=== PATIENT | male | born 1940 | race Caucasian/White ===

== ENCOUNTER 2016-06-03 07:55 | Day surgery (SDC) | payer MEDICARE, OTHER ==
[~2016-06-03 07:55] MED LIST: DIPHENHYDRAMINE HCL 50 MG/ML VIAL ONE; EPINEPHRINE INJ 1 MG/10 ML DISP.SYRIN ONE; FLUMAZENIL INJ 0.5 MG/5 ML VIAL IV ONE; GLUCAGON,HUMAN RECOMB 1 MG INJ ONE; NALOXONE HCL INJ/PF 0.4 MG/1 ML SDV ONE; ONDANSETRON HCL INJ/PF 4 MG/2 ML SDV ONE; PROMETHAZINE HCL INJ 25 MG/1 ML VIAL ONE
[2016-06-03] MEDS: MIDAZOLAM 2 MG/2 ML INJ ONE ×3 (08:47→09:15)
[2016-06-03] MEDS: FENTANYL CITRATE INJ/PF 100 MCG/2 ML AMPUL ONE ×2 (08:49→09:04)
--- NOTE | 2016-06-03 09:46 | Operative Report ---
Operative Report DATE OF SURGERY: 06/03/16 Operative Report: The risks, benefits and alternatives of the procedure including risks of bleeding, perforation requiring surgery are explained to the patient detail and informed consent is obtained. Patient is placed in a left lateral decubital position. He is taken to the endoscopy suite. Timeout is called. Conscious sedation medications administered. A rectal examination was done which did not reveal any masses, tears or fissures. A 160 Olympus endoscope was inserted into the patient's rectum. Keeping the lumen in site at all times the scope was then gradually advanced all the way to the cecum. The cecum was identified by the usual anatomical landmarks including the ileocecal valve as well as the appendiceal office. Photodocumentation is obtained. Prep is reasonably good although there are areas of solid fecal material that still present. From the cecum, the scope was then sequentially pulled back out via the rest segments of the colon including the ascending colon, hepatic flexure, transverse colon, splenic flexure, descending colon and finally into the rectosigmoid colon. Retroflexion maneuvers performed. Following this the patient's stretcher was turned around and EGD performed.The risks benefits and alternatives of the procedure explained to the patient in detail and informed consent is obtained that GIF Olympus video scope was inserted into the patient's mouth and hypopharynx the esophagus is identified intubated and insufflated the scope was then advanced through the esophagus stomach and duodenum retroflexion maneuver is done the esophagus stomach and first and second portions of the duodenum examined PREOPERATIVE DIAGNOSIS: Personal history of polyps. Gastroesophageal reflux disease rule out Menjivar's esophagus POSTOPERATIVE DIAGNOSIS: Colon polyp in the cecum. This is removed via snare polypectomy and retrieved. Redundant colon. Internal hemorrhoids. Gastric polyps noted biopsy taken rule out carcinoid. Gastritis OPERATION: Colonoscopy with snare polypectomy. EGD with biopsy SURGEON: JEAN MARIE GARCIA ANESTHESIA: Moderate Sedation - 6 mg Versed, 75 g of fentanyl. TISSUE REMOVED OR ALTERED: Specimen retrieved from colon, gastric specimens obtained COMPLICATIONS: None. ESTIMATED BLOOD LOSS: none. INTRAOPERATIVE FINDINGS: No other masses, AVMs, diverticulosis noted in the colon. Some mild internal hemorrhoids are noted. Did not see any Menjivar's esophagus. First and second portions of the duodenum normal PROCEDURE: Patient tolerated the procedure well. No immediate postprocedure complications are noted. Patient is discharged in good condition. Discharge date 06/03/2016. Discharge diet: Regular. Discharge activity: Regular. Five-year surveillance for the next colonoscopy Patient does have a 2-3 week follow-up to discuss findings. Patient instructed to go to the emergency room I'll call the office should there be any further problems or questions.
[2016-06-03 10:26] VITALS: BP 130/67
== END 2016-06-03 10:30 | disposition home or self-care (01) ==
LOC: END 07:55
PROVIDERS: ATTEND Internal Medicine Gastroenterology
PROC: 0DB68ZX Excision of Stomach, Via Natural or Artificial Opening Endoscopic, Diagnostic (ICD-10-PCS; principal; 2016-06-03 08:30)
PROC: 0DBH8ZX Excision of Cecum, Via Natural or Artificial Opening Endoscopic, Diagnostic (ICD-10-PCS; 2016-06-03 08:30)
DX: D12.0 Benign neoplasm of cecum (principal); K64.8 Other hemorrhoids; K29.50 Unspecified chronic gastritis without bleeding; K31.7 Polyp of stomach and duodenum; K21.9 Gastro-esophageal reflux disease without esophagitis; Z79.82 Long term (current) use of aspirin; I25.10 Atherosclerotic heart disease of native coronary artery without angina pectoris; E78.5 Hyperlipidemia, unspecified; I10 Essential (primary) hypertension; M51.36 Other intervertebral disc degeneration, lumbar region; Z79.899 Other long term (current) drug therapy; Z95.1 Presence of aortocoronary bypass graft; Z98.61 Coronary angioplasty status
CPT/HCPCS: 43239; 45385; 88342 ×2; 88305 ×2; J2250; J3010; J0171; J1200; J1610; J2310; J2405; J2550; J3490

== ENCOUNTER 2017-05-29 09:13 | Emergency (ER) | payer MEDICARE, OTHER ==
[2017-05-29 09:37] VITALS: BP 159/78
--- NOTE | 2017-05-29 09:48 | RADIOLOGY REPORT (SQ) ---
EXAM DESCRIPTION: CT CERVICAL SPINE WITHOUT COMPLETED DATE/TIME: 05/29/2017 9:31 am REASON FOR STUDY: fall , loc COMPARISON: None. TECHNIQUE: Axial images acquired through the cervical spine without intravenous contrast. Images re viewed with lung, soft tissue and bone windows. Reconstructed coronal and sagittal MPR images review ed. Images stored on PACS. All CT scanners at this facility use dose modulation, iterative reconstruction, and/or weight based d osing when appropriate to reduce radiation dose to as low as reasonably achievable (ALARA). [facility]: Dose Right [facility]: CareDose [facility]: Dose Right [facility]: Teradose 4D [facility]: Smart E-Sign RADIATION DOSE: CT Rad equipment meets quality standard of care and radiation dose reduction techniq ues were employed. CTDIvol: 18.8 mGy. DLP: 395 mGy-cm. mGy. LIMITATIONS: None. FINDINGS: ALIGNMENT: Anatomic. MINERALIZATION: Normal. VERTEBRAL BODIES: No fractures or dislocation. DISCS: Multilevel disc space narrowing with osteophytes. FACETS, LATERAL MASSES, POSTERIOR ELEMENTS: Facet arthropathy. No fractures. No dislocation. No ac [place] findings. HARDWARE: None in the spine. VISUALIZED RIBS: No fractures. LUNG APICES AND SOFT TISSUES: No significant or acute findings. OTHER: No other significant finding. IMPRESSION: CHRONIC DEGENERATIVE CHANGES. NO ACUTE FINDINGS. TECHNICAL DOCUMENTATION: JOB ID: [id number] Quality ID # [id number]: Final reports with documentation of one or more dose reduction techniques (e.g., Au tomated exposure control, adjustment of the mA and/or kV according to patient size, use of iterative reconstruction technique) 2010 [employer]- All Rights Reserved
--- NOTE | 2017-05-29 09:48 | RADIOLOGY REPORT (SQ) ---
EXAM DESCRIPTION: CT HEAD WITHOUT COMPLETED DATE/TIME: 05/29/2017 9:30 am REASON FOR STUDY: fall , loc COMPARISON: None. TECHNIQUE: Axial images acquired through the brain without intravenous contrast. Images reviewed wi th bone, brain and subdural windows. Images stored on PACS. All CT scanners at this facility use dose modulation, iterative reconstruction, and/or weight based d osing when appropriate to reduce radiation dose to as low as reasonably achievable (ALARA). [facility]: Dose Right [facility]: CareDose [facility]: Dose Right [facility]: Teradose 4D [facility]: [employer] RADIATION DOSE: CT Rad equipment meets quality standard of care and radiation dose reduction techniq ues were employed. CTDIvol: 64.6 mGy. DLP: 1163 mGy-cm. mGy. LIMITATIONS: None. FINDINGS: VENTRICLES: Prominent. CEREBRUM: No masses. No hemorrhage. No midline shift. Areas of low density in the white matter mos t likely due to chronic micro-vascular ischemic change. No evidence for acute infarction. CEREBELLUM: No masses. No hemorrhage. No alteration of density. No evidence for acute infarction. EXTRAAXIAL SPACES: Mild age-related involutional change. No fluid collections. No masses. ORBITS AND GLOBE: No intra- or extraconal masses. Normal contour of globe without masses. CALVARIUM: No fracture. PARANASAL SINUSES: No fluid or mucosal thickening. SOFT TISSUES: No mass or hematoma. OTHER: No other significant finding. IMPRESSION: MILD CHRONIC CHANGES OF ATROPHY AND MICROVASCULAR ISCHEMIA. NO ACUTE PROCESS. EVIDENCE OF ACUTE STROKE: NO. TECHNICAL DOCUMENTATION: JOB ID: [id number] Quality ID # [id number]: Final reports with documentation of one or more dose reduction techniques (e.g., Au tomated exposure control, adjustment of the mA and/or kV according to patient size, use of iterative reconstruction technique) 2010 [employer]- All Rights Reserved
[2017-05-29] MEDS ORDERED: NAPROXEN 250 MG TABLET PO ONE (10:36)
--- NOTE | 2017-05-29 10:42 | ER Document Report ---
ED General - General Chief Complaint: Fall Stated Complaint: FALL/HEAD PAIN Time Seen by Provider: 05/29/17 09:20 Mode of Arrival: Ambulatory Information source: Patient Notes: 76-year-old male history of quadruple bypass presents after falling and striking his head. It is noted to be icy outside and patient was walking his dog, he is unsure if he slept R syncopized. Patient denies any chest pain shortness breath difficulty breathing or any other complaints except for a headache. It is noted that EMS did bring the patient was found on the floor TRAVEL OUTSIDE OF THE [place] IN LAST 30 DAYS: No - HPI Onset: Just prior to arrival Onset/Duration: Sudden Quality of pain: Achy Severity: Mild Pain Level: 1 Associated symptoms: Headache Exacerbated by: Denies Relieved by: Denies Similar symptoms previously: No Recently seen / treated by doctor: No - Related Data Allergies/Adverse Reactions: No Known Allergies Allergy (Verified 06/03/16 08:15) Past Medical History - Social History Smoking Status: Never Smoker Cigarette use (# per day): No Chew tobacco use (# tins/day): No Smoking Education Provided: No Frequency of alcohol use: None Drug Abuse: None Family History: Reviewed & Not Pertinent Patient has suicidal ideation: No Patient has homicidal ideation: No - Past Medical History Cardiac Medical History: Reports: Hx Coronary Artery Disease, Hx Heart Attack, Hx Hypercholesterolemia, Hx Hypertension Pulmonary Medical History: Denies: Hx Asthma, Hx Bronchitis, Hx COPD, Hx Pneumonia Neurological Medical History: Denies: Hx Cerebrovascular Accident, Hx Seizures Renal/ Medical History: Denies: Hx Peritoneal Dialysis Musculoskeltal Medical History: Reports Hx Arthritis - HANDS - Immunizations Hx Diphtheria, Pertussis, Tetanus Vaccination: Yes Hx Pneumococcal Vaccination: 02/21/13 Review of Systems - Review of Systems Notes: REVIEW OF SYSTEMS: CONSTITUTIONAL : Denies fever, chills, or sweats. Denies recent illness. EENT: Denies eye, ear, throat, or mouth pain or symptoms. Denies nasal or sinus congestion or discharge. Denies throat, tongue, or mouth swelling or difficulty swallowing. CARDIOVASCULAR: Denies chest pain. Denies palpitations or racing or irregular heart beat. Denies ankle edema. RESPIRATORY: Denies cough, cold, or chest congestion. Denies shortness of breath, difficulty breathing, or wheezing. GASTROINTESTINAL: Denies abdominal pain or distention. Denies nausea, vomiting , or diarrhea. Denies blood in vomitus, stools, or per rectum. Denies black, tarry stools. Denies constipation. GENITOURINARY: Denies difficulty urinating, painful urination, burning, frequency, blood in urine, or discharge. MUSCULOSKELETAL: Denies back or neck pain or stiffness. Denies joint pain or swelling. SKIN: Denies rash, lesions or sores. HEMATOLOGIC : Denies easy bruising or bleeding. LYMPHATIC: Denies swollen, enlarged glands. NEUROLOGICAL: Admits headache PSYCHIATRIC: Denies anxiety or stress. Denies depression, suicidal ideation, or homicidal ideation. ALL OTHER SYSTEMS REVIEWED AND NEGATIVE. Dictation was performed using [employer] voice recognition software PHYSICAL EXAMINATION: GENERAL: Well-appearing, well-nourished and in no acute distress. HEAD: Atraumatic, normocephalic. EYES: Pupils equal round and reactive to light, extraocular movements intact, sclera anicteric, conjunctiva are normal. ENT: Nares patent, oropharynx clear without exudates. Moist mucous membranes. NECK: Normal range of motion, supple without lymphadenopathy LUNGS: Breath sounds clear to auscultation bilaterally and equal. No wheezes rales or rhonchi. HEART: Regular rate and rhythm without murmurs ABDOMEN: Soft, nontender, nondistended abdomen. No guarding, no rebound. No masses appreciated. Musculoskeletal: Normal range of motion, no pitting or edema. No cyanosis. NEUROLOGICAL: Cranial nerves grossly intact. Normal speech, normal gait. Normal sensory, motor exams PSYCH: Normal mood, normal affect. SKIN: Warm, Dry, normal turgor, no rashes or lesions noted. Physical Exam - Vital signs Vitals: Temp Pulse Resp BP Pulse Ox 97.9 F 54 L 16 159/78 H 97 05/29/17 09:22 05/29/17 09:22 05/29/17 09:22 05/29/17 09:22 05/29/17 09:22 Course - Re-evaluation Re-evalutation: 05/29/17 10:45 CT head and neck were negative c-collar was removed patient never had any cervical tenderness but given that I am unsure what exactly happened I did want to clear his neck as well. EKG was performed a left bundle branch block is noted, patient has no chest pain symptoms however I will do a set of troponins nonetheless 05/29/17 16:01 Cardiac enzymes are negative patient's lab work is benign, he feels well wishes to be discharged, I will discharge him with understand that this is not a complete cardiac evaluation even though I have very low suspicion for any cardiac event that he has no chest pain no other symptoms. I believe this was a mechanical fall with a concussion After performing a Medical Screening Examination, I estimate there is LOW risk for ACUTE GLAUCOMA, TEMPORAL ARTERITIS, MENINGITIS, INCRANIAL HEMORRHAGE, or ISCHEMIC STROKE thus I consider the discharge disposition reasonable. I have reevaluated this patient multiple times and no significant life threatening changes are noted. The patient and I have discussed the diagnosis and risks, and we agree with discharging home with close follow-up with the understanding that symptoms and presentations can change. We also discussed returning to the Emergency Department immediately if new or worsening symptoms occur. We have discussed the symptoms which are most concerning (e.g., changing or worsening symptoms, new numbness or weakness, vomiting, fever) that necessitate immediate return. - Vital Signs Vital signs: Temp Pulse Resp BP Pulse Ox 97.9 F 54 L 16 159/78 H 97 05/29/17 09:22 05/29/17 09:22 05/29/17 09:22 05/29/17 09:22 05/29/17 09:22 - Laboratory Result Diagrams: 05/29/17 11:14 05/29/17 11:14 Laboratory results interpreted by me: 05/29/17 11:14 Glucose 119 H - Diagnostic Test Radiology reviewed: Image reviewed, Reports reviewed - EKG Interpretation by In EKG shows normal: Sinus rhythm, [place], Intervals, QRS Complexes [place]/QRS: LBBB Discharge - Discharge Clinical Impression: Fall Qualifiers: Encounter type: initial encounter Qualified Code(s): W19.XXXA - Unspecified fall, initial encounter Concussion Qualifiers: Encounter type: initial encounter Loss of consciousness presence/duration: with LOC of 30 min or less Qualified Code(s): S06.0X1A - Concussion with loss of consciousness of 30 minutes or less, initial encounter Condition: Stable Disposition: HOME, SELF-CARE Instructions: Concussion ([facility]) Referrals: DEJAH RAMOS MD [Primary Care Provider] - Follow up tomorrow
[2017-05-29 11:27] LABS: ABSOLUTE BASOPHILS # (AUTO) 0.1 10^3/uL (0.0-0.2); ABSOLUTE EOSINOPHILS # (AUTO) 0.1 10^3/uL (0.0-0.6); ABSOLUTE LYMPHOCYTES (AUTO) 1.8 10^3/uL (0.5-4.7); ABSOLUTE MONOCYTES (AUTO) 0.6 10^3/uL (0.1-1.4); ABSOLUTE NEUT (AUTO) 6.6 10^3/uL (1.7-8.2); BASOPHILS % (AUTO) 0.7 % (0-2); EOSINOPHILS % (AUTO) 0.9 % (0-6); HEMATOCRIT 44.4 % (37.9-51.0); HEMOGLOBIN 15.4 g/dL (13.5-17.0); LYMPHOCYTES % (AUTO) 19.5 % (13-45); MEAN CORPUSCULAR HEMOGLOBIN 31.2 pg (27.0-33.4); MEAN CORPUSCULAR HGB CONC 34.6 g/dL (32.0-36.0); MEAN CORPUSCULAR VOLUME 90 fl (80-97); MONOCYTES % (AUTO) 6.4 % (3-13); PLATELET COUNT 189 10^3/uL (150-450); RED BLOOD COUNT 4.92 10^6/uL (4.35-5.55); SEGMENTED NEUTROPHILS % (AUTO) 72.5 % (42-78); TOTAL CELLS COUNTED % (AUTO) 100 %; WHITE BLOOD COUNT 9.1 10^3/uL (4.0-10.5)
--- NOTE | 2017-05-29 11:38 | EKG REPORT ---
SEVERITY:- ABNORMAL ECG - SINUS RHYTHM LEFT BUNDLE BRANCH BLOCK : Confirmed by: Elliot Carreon 29-May-2017 11:37:31
[2017-05-29 11:41] LABS: ALANINE AMINOTRANSFERASE 25 U/L (21-72); ALBUMIN 4.4 g/dL (3.5-5.0); ALKALINE PHOSPHATASE 69 U/L (38-126); ANION GAP 9 (5-19); ASPARTATE AMINO TRANSFERASE 23 U/L (17-59); BILIRUBIN,DIRECT 0.2 mg/dL (0.0-0.4); BILIRUBIN,TOTAL 0.6 mg/dL (0.2-1.3); BLOOD UREA NITROGEN 19 mg/dL (7-20); CALCIUM 9.7 mg/dL (8.4-10.2); CARBON DIOXIDE 29 mmol/L (22-30); CHLORIDE 104 mmol/L (98-107); CREATINE KINASE 92 U/L (55-170); GLUCOSE 119 mg/dL (75-110); POTASSIUM 4.4 mmol/L (3.6-5.0); SODIUM 142.1 mmol/L (137-145); TOTAL PROTEIN 7.3 g/dL (6.3-8.2)
[2017-05-29 11:53] LABS: CREATINE KINASE MB 1.87 ng/mL (<4.55)
[2017-05-29 11:55] LABS: TROPONIN I < 0.012 ng/mL
== END 2017-05-29 13:16 | disposition home or self-care (01) ==
LOC: ER 09:13
DX: S06.0X1A Concussion with loss of consciousness of 30 minutes or less, initial encounter (principal); R51 Headache; W19.XXXA Unspecified fall, initial encounter; Y93.K1 Activity, walking an animal; I25.10 Atherosclerotic heart disease of native coronary artery without angina pectoris; I10 Essential (primary) hypertension; I25.2 Old myocardial infarction; I44.7 Left bundle-branch block, unspecified
CPT/HCPCS: 93005; 99284; 36415; 82553; 82550; 85025; 80053; 84484; 70450; 72125; 93010; L0120; A9270

== ENCOUNTER → 2017-06-05 | Outpatient (CLI) | payer MEDICARE, OTHER ==
--- NOTE | 2017-06-05 15:21 | RADIOLOGY REPORT (SQ) ---
EXAM DESCRIPTION: CT HEAD WITHOUT COMPLETED DATE/TIME: 06/05/2017 2:59 pm REASON FOR STUDY: CONCUSSION WITH LOSS OF CONSCIOUSNESS, SUBSEQUENT ENCOUNTER S06.0X9D CONCUSSION W LOSS OF CONSCIOUSNESS OF UNSP DURATION COMPARISON: 05/29/2017. TECHNIQUE: Axial images acquired through the brain without intravenous contrast. Images reviewed wi th bone, brain and subdural windows. Images stored on PACS. All CT scanners at this facility use dose modulation, iterative reconstruction, and/or weight based d osing when appropriate to reduce radiation dose to as low as reasonably achievable (ALARA). [facility]: Dose Right [facility]: CareDose [facility]: Dose Right [facility]: Teradose 4D [facility]: [employer] RADIATION DOSE: CT Rad equipment meets quality standard of care and radiation dose reduction techniq ues were employed. CTDIvol: 64.6 mGy. DLP: 1163 mGy-cm. mGy. LIMITATIONS: None. FINDINGS: VENTRICLES: Prominent. CEREBRUM: No masses. No hemorrhage. No midline shift. Areas of low density in the white matter mos t likely due to chronic micro-vascular ischemic change. No evidence for acute infarction. CEREBELLUM: No masses. No hemorrhage. No alteration of density. No evidence for acute infarction. EXTRAAXIAL SPACES: Mild age-related involutional change. No fluid collections. No masses. ORBITS AND GLOBE: No intra- or extraconal masses. Normal contour of globe without masses. CALVARIUM: No fracture. PARANASAL SINUSES: No fluid or mucosal thickening. SOFT TISSUES: No mass or hematoma. OTHER: There is an expansile mass in the sella turcica. IMPRESSION: MILD CHRONIC CHANGES OF ATROPHY AND MICROVASCULAR ISCHEMIA. NO ACUTE FINDINGS. 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 RECOMMEND FOLLOW-UP WITH MRI O F THE BRAIN WITH ATTENTION TO THE PITUITARY. EVIDENCE OF ACUTE STROKE: NO. TECHNICAL DOCUMENTATION: JOB ID: [id number] Quality ID # [id number]: Final reports with documentation of one or more dose reduction techniques (e.g., Au tomated exposure control, adjustment of the mA and/or kV according to patient size, use of iterative reconstruction technique) 2010 [employer]- All Rights Reserved
== END ==
LOC: RAD 14:46
PROVIDERS: ATTEND Family Medicine
DX: S06.0X9D Concussion with loss of consciousness of unspecified duration, subsequent encounter (principal); X58.XXXD Exposure to other specified factors, subsequent encounter
CPT/HCPCS: 70450

== ENCOUNTER → 2017-12-13 | Outpatient (CLI) | payer MEDICARE, OTHER ==
[2017-12-13 14:22] LABS: ABSOLUTE EOSINOPHILS # (AUTO) 0.1 10^3/uL (0.0-0.6); ABSOLUTE LYMPHOCYTES (AUTO) 1.9 10^3/uL (0.5-4.7); ABSOLUTE MONOCYTES (AUTO) 0.4 10^3/uL (0.1-1.4); ABSOLUTE NEUT (AUTO) 3.3 10^3/uL (1.7-8.2); BASOPHILS % (AUTO) 0.7 % (0-2); EOSINOPHILS % (AUTO) 2.1 % (0-6); HEMATOCRIT 41.5 % (37.9-51.0); HEMOGLOBIN 14.6 g/dL (13.5-17.0); MEAN CORPUSCULAR HEMOGLOBIN 30.6 pg (27.0-33.4); MEAN CORPUSCULAR HGB CONC 35.2 g/dL (32.0-36.0); MEAN CORPUSCULAR VOLUME 87 fl (80-97); MONOCYTES % (AUTO) 7.2 % (3-13); PLATELET COUNT 165 10^3/uL (150-450); RED BLOOD COUNT 4.77 10^6/uL (4.35-5.55); RED CELL DISTRIBUTION WIDTH 13.9 % (11.5-14.0); TOTAL CELLS COUNTED % (AUTO) 100 %; WHITE BLOOD COUNT 5.7 10^3/uL (4.0-10.5)
[2017-12-13 14:44] LABS: ANION GAP 11 (5-19); BLOOD UREA NITROGEN 20 mg/dL (7-20); CALCIUM 9.4 mg/dL (8.4-10.2); CARBON DIOXIDE 27 mmol/L (22-30); CHLORIDE 105 mmol/L (98-107); GLUCOSE 141 mg/dL (75-110); POTASSIUM 4.4 mmol/L (3.6-5.0); SODIUM 142.9 mmol/L (137-145)
[2017-12-13 14:51] LABS: INTERNATIONAL RATION (INR) 0.97; PROTHROMBIN TIME 13.3 SEC (11.4-15.4)
== END ==
LOC: LAB 12:23
PROVIDERS: ATTEND Hospitalist
DX: R07.9 Chest pain, unspecified (principal); I25.10 Atherosclerotic heart disease of native coronary artery without angina pectoris
CPT/HCPCS: 36415; 80048; 84484; 85025; 85610

== ENCOUNTER 2019-04-27 13:24 | Observation (INO) | payer MEDICARE, OTHER ==
--- NOTE | 2019-04-27 14:01 | ER Document Report ---
ED Medical Screen (RME) - General Chief Complaint: Shortness Of Breath Stated Complaint: SHORTNESS OF BREATH/NAUSEA Time Seen by Provider: 04/27/19 13:45 Primary Care Provider: DEJAH RAMOS MD [Primary Care Provider] - Follow up as needed Mode of Arrival: Ambulatory TRAVEL OUTSIDE OF THE [place] IN LAST 30 DAYS: No - HPI Notes: 04/27/19 13:58 78-year-old male presents with for sudden onset shortness of breath that started today patient had a valve replacement done in [place] on Wednesday in which they went through his femoral artery. Patient states that he has to "catch his breath" throughout the day. Denies any fevers or chills. Patient does report some nausea. Denies any history of heart failure. Patient is on baby aspirin. Worse with time, nothing makes better. Denies any pedal edema. I have greeted and performed a rapid initial assessment of this patient. A comprehensive ED assessment and evaluation of the patient, analysis of test results and completion of the medical decision making process will be conducted by additional ED providers. PHYSICAL EXAMINATION: GENERAL: Well-appearing, well-nourished and in no acute distress. HEAD: Atraumatic, normocephalic. EYES: Pupils equal round extraocular movements intact, conjunctiva are normal. ENT: Nares patent NECK: Normal range of motion LUNGS: No respiratory distress, CTA Musculoskeletal: Normal range of motion NEUROLOGICAL: Normal speech, normal gait. PSYCH: Normal mood, normal affect. SKIN: Warm, Dry, normal turgor, no rashes or lesions noted. - Related Data Allergies/Adverse Reactions: No Known Allergies Allergy (Verified 04/27/19 13:46) Past Medical History - Social History Chew tobacco use (# tins/day): No Frequency of alcohol use: None Drug Abuse: None - Past Medical History Cardiac Medical History: Reports: Hx Coronary Artery Disease, Hx Heart Attack, Hx Hypercholesterolemia, Hx Hypertension Pulmonary Medical History: Denies: Hx Asthma, Hx Bronchitis, Hx COPD, Hx Pneumonia Neurological Medical History: Denies: Hx Cerebrovascular Accident, Hx Seizures Renal/ Medical History: Denies: Hx Peritoneal Dialysis Musculoskeltal Medical History: Reports Hx Arthritis - HANDS - Immunizations Hx Diphtheria, Pertussis, Tetanus Vaccination: Yes Physical Exam - Vital signs Vitals: Temp Pulse Resp BP Pulse Ox 98 F 67 16 146/55 H 97 12/05/19 13:41 04/27/19 13:41 04/27/19 13:41 04/27/19 13:41 04/27/19 13:41 Course - Vital Signs Vital signs: Temp Pulse Resp BP Pulse Ox 98 F 67 16 146/55 H 97 04/27/19 13:46 04/27/19 13:46 04/27/19 13:46 04/27/19 13:46 04/27/19 13:46 Doctor's Discharge - Discharge Referrals: DEJAH RAMOS MD [Primary Care Provider] - Follow up as needed
--- NOTE | 2019-04-27 15:03 | RADIOLOGY REPORT (SQ) ---
EXAM DESCRIPTION: CHEST 2 VIEWS COMPLETED DATE/TIME: 04/27/2019 2:33 pm REASON FOR STUDY: sob s/p valve replacement COMPARISON: 08/22/2010 EXAM PARAMETERS: NUMBER OF VIEWS: two views TECHNIQUE: Digital Frontal and Lateral radiographic views of the chest acquired. RADIATION DOSE: NA LIMITATIONS: none FINDINGS: LUNGS AND PLEURA: No opacities, masses or pneumothorax. No pleural effusion. MEDIASTINUM AND HILAR STRUCTURES: No masses or contour abnormalities. HEART AND VASCULAR STRUCTURES: Heart normal size. No evidence for failure. BONES: No acute findings. HARDWARE: Sternotomy wires. Heart valve. Graft markers. OTHER: No other significant finding. IMPRESSION: NO ACUTE RADIOGRAPHIC FINDING IN THE CHEST. TECHNICAL DOCUMENTATION: JOB ID: [id number] [employer]- All Rights Reserved Reading location - IP/workstation name: [email or web address]
[2019-04-27 15:10] LABS: ABSOLUTE EOSINOPHILS # (AUTO) 0.1 10^3/uL (0.0-0.6); ABSOLUTE LYMPHOCYTES (AUTO) 1.6 10^3/uL (0.5-4.7); ABSOLUTE MONOCYTES (AUTO) 0.7 10^3/uL (0.1-1.4); ABSOLUTE NEUT (AUTO) 5.1 10^3/uL (1.7-8.2); BASOPHILS % (AUTO) 0.4 % (0-2); HEMATOCRIT 40.3 % (37.9-51.0); HEMOGLOBIN 14.2 g/dL (13.5-17.0); LYMPHOCYTES % (AUTO) 21.2 % (13-45); MEAN CORPUSCULAR HEMOGLOBIN 32.2 pg (27.0-33.4); MEAN CORPUSCULAR HGB CONC 35.2 g/dL (32.0-36.0); MEAN CORPUSCULAR VOLUME 91 fl (80-97); MONOCYTES % (AUTO) 9.1 % (3-13); PLATELET COUNT 125 10^3/uL (150-450); RED BLOOD COUNT 4.42 10^6/uL (4.35-5.55); RED CELL DISTRIBUTION WIDTH 14.1 % (11.5-14.0); SEGMENTED NEUTROPHILS % (AUTO) 68.3 % (42-78); TOTAL CELLS COUNTED % (AUTO) 100 %; WHITE BLOOD COUNT 7.5 10^3/uL (4.0-10.5)
[2019-04-27 15:26] LABS: INTERNATIONAL RATION (INR) 1.01; PROTHROMBIN TIME 13.3 SEC (11.4-15.4)
[2019-04-27 15:27] LABS: PARTIAL THROMBOPLASTIN TIME 27.4 SEC (23.5-35.8)
[2019-04-27 15:32] LABS: ALKALINE PHOSPHATASE 72 U/L (38-126); ANION GAP 7 (5-19); ASPARTATE AMINO TRANSFERASE 34 U/L (17-59); BILIRUBIN,DIRECT 0.1 mg/dL (0.0-0.4); BILIRUBIN,TOTAL 1.2 mg/dL (0.2-1.3); BLOOD UREA NITROGEN 28 mg/dL (7-20); CALCIUM 9.3 mg/dL (8.4-10.2); CARBON DIOXIDE 29 mmol/L (22-30); CHLORIDE 104 mmol/L (98-107); GLUCOSE 108 mg/dL (75-110); POTASSIUM 4.2 mmol/L (3.6-5.0); TOTAL PROTEIN 7.3 g/dL (6.3-8.2)
[2019-04-27 15:47] LABS: TROPONIN I 0.108 ng/mL
--- NOTE | 2019-04-27 18:49 | RADIOLOGY REPORT (SQ) ---
EXAM DESCRIPTION: CTA CHEST COMPLETED DATE/TIME: 04/27/2019 6:30 pm REASON FOR STUDY: recent TAVR, r/o PE COMPARISON: None. TECHNIQUE: CT scan of the chest performed using helical scanning technique with dynamic intravenous contrast injection. Images reviewed with lung, soft tissue and bone windows. Reconstructed coronal and sagittal MPR images reviewed. Additional 3 dimensional post-processing performed to develop Maximal Intensity Projection images (OR P). All images stored on PACS. All CT scanners at this facility use dose modulation, iterative reconstruction, and/or weight based d osing when appropriate to reduce radiation dose to as low as reasonably achievable (ALARA). [facility]: Dose Right [facility]: CareDose [facility]: Dose Right [facility]: Teradose 4D [facility]: [employer] CONTRAST TYPE AND DOSE: contrast/concentration: Isovue 350.00 mg/ml; Total Contrast Delivered: 56.0 ml; Total Saline Delivered: 80.0 ml Contrast bolus adequate for pulmonary arteries and aorta. RENAL FUNCTION: BUN 28 creatinine 1.28 RADIATION DOSE: CT Rad equipment meets quality standard of care and radiation dose reduction techniq ues were employed. CTDIvol: 14.3 - 26.4 mGy. DLP: 536 mGy-cm. . LIMITATIONS: None. FINDINGS: LUNGS AND PLEURA: No masses, infiltrates, or pneumothorax. No pleural effusions or pleura l calcifications. AORTA AND GREAT VESSELS: No aneurysm. No dissection. HEART: No pericardial effusion. Prior CABG. PULMONARY ARTERIES: No emboli visualized in the main pulmonary arteries or the segmental branches. HILAR AND MEDIASTINAL STRUCTURES: No identified masses or abnormal nodes. HARDWARE: Heart valve. Sternotomy wires. UPPER ABDOMEN: No significant findings. Limited exam. THYROID AND OTHER SOFT TISSUES: No masses. No adenopathy. BONES: No acute or significant finding. 3D MIPS: Confirm above findings. OTHER: No other significant finding. IMPRESSION: There are no pulmonary emboli. There is no aortic aneurysm or dissection. COMMENT: Quality ID # [id number]: Final reports with documentation of one or more dose reduction techniques (e.g., Automated exposure control, adjustment of the mA and/or kV according to patient size, use of iterative reconstruction technique) TECHNICAL DOCUMENTATION: JOB ID: [id number] [employer]- All Rights Reserved Reading location - IP/workstation name: [email or web address]
[2019-04-27] MEDS ORDERED: ASPIRIN 325 MG TABLET PO ONE (18:59)
--- NOTE | 2019-04-27 20:05 | ER Document Report ---
ED General - General Chief Complaint: Shortness Of Breath Stated Complaint: SHORTNESS OF BREATH/NAUSEA Time Seen by Provider: 04/27/19 13:45 Mode of Arrival: Ambulatory Notes: 78-year-old male presents emergency department complaining of feeling like he cannot take a deep breath. Patient states that he had a TAVR procedure performed on Wednesday at [facility], was discharged on Wednesday. Since he got home on Wednesday he feels like every minute and 1/2 to 2 minutes he has to take a deep developing breath because he feels like otherwise he is not getting enough oxygen. Denies any cough, denies any leg swelling, denies any back pain or chest pain. Admits a history of bypass surgery as well as 6 different stents. TRAVEL OUTSIDE OF THE [place] IN LAST 30 DAYS: No - Related Data Allergies/Adverse Reactions: No Known Allergies Allergy (Verified 04/27/19 13:46) Past Medical History - General Information source: Patient, [facility] Records, Outside Facility Records - Social History Smoking Status: Never Smoker Chew tobacco use (# tins/day): No Frequency of alcohol use: None Drug Abuse: None Family History: Reviewed & Not Pertinent Patient has suicidal ideation: No Patient has homicidal ideation: No - Past Medical History Cardiac Medical History: Reports: Hx Coronary Artery Disease, Hx Heart Attack, Hx Hypercholesterolemia, Hx Hypertension Pulmonary Medical History: Denies: Hx Asthma, Hx Bronchitis, Hx COPD, Hx Pneumonia Neurological Medical History: Denies: Hx Cerebrovascular Accident, Hx Seizures Renal/ Medical History: Denies: Hx Peritoneal Dialysis Musculoskeletal Medical History: Reports Hx Arthritis - HANDS - Immunizations Hx Diphtheria, Pertussis, Tetanus Vaccination: Yes Hx Pneumococcal Vaccination: 02/21/13 Review of Systems - Review of Systems Constitutional: No symptoms reported Cardiovascular: See HPI, Dyspnea Respiratory: See HPI -: Yes All other systems reviewed and negative Physical Exam - Vital signs Vitals: Temp Pulse Resp BP Pulse Ox 98 F 67 16 146/55 H 97 04/27/19 13:41 04/27/19 13:41 04/27/19 13:41 04/27/19 13:41 04/27/19 13:41 Interpretation: Hypertensive - Notes Notes: GENERAL: Alert, interacts well. No acute distress. HEAD: Normocephalic, atraumatic EYES: Pupils equal, round and reactive to light, extraocular movements intact. ENT: Oral mucosa moist, tongue midline. NECK: Full range of motion, supple, trachea midline. LUNGS: Clear to auscultation bilaterally, no wheezes, rales or rhonchi, no respiratory distress. HEART: Regular rate and rhythm, mechanical click is heard, slight systolic murmur. ABDOMEN: Soft, nontender, nondistended, bowel sounds present in all 4 quadrants. EXTREMITIES: Moves all 4 extremities spontaneously, no edema, radial and dorsalis pedis pulses 2/4 bilaterally. No cyanosis. NEUROLOGICAL: Alert and oriented x3, normal speech, biceps and patellar DTRs 2+ bilaterally. PSYCH: Normal mood, normal affect. SKIN: Warm, Dry, normal turgor. Course - Re-evaluation Re-evalutation: 04/27/19 21:24 CBC shows low platelets at 125, coags normal, CMP shows elevated BUN and creatinine, BUN is new, as is the creatinine, troponin initially indeterminate at 0.108 and repeated approximately 2 hours later increased to 0.119, EKG shows an unchanged left bundle branch block. Chest x-ray did not show any acute pneumothorax or pneumonia. It did show expected surgical changes. CT angiogram of the chest was ordered to look for pulmonary embolism. This did not show any pulmonary embolism or smaller acute finding. Discussed case with Dr. Singh Crowder the patient's primary video editor who recommends that the patient be brought into the hospital to have their cardiac enzymes continue to be trended to see if they go up higher or if they start to downtrend. Recommended increase in the Imdur from 30 mg to [address] Rinaldi the hospitalist who agrees to accept the patient to his service. He is going to speak directly with Dr. Froy Crowder who agreed to call him and put a consult in the computer as well. - Vital Signs Vital signs: Temp Pulse Resp BP Pulse Ox 98 F 67 13 142/64 H 96 04/27/19 13:46 04/27/19 13:46 04/27/19 19:01 04/27/19 19:01 04/27/19 19:01 - Laboratory Result Diagrams: 04/27/19 14:50 04/27/19 14:50 Laboratory results interpreted by me: 04/27/19 04/27/19 14:50 14:50 RDW 14.1 H Plt Count 125 L BUN 28 H Creatinine 1.28 H Est GFR (MDRD) Non-Af 54 L - EKG Interpretation by Me Additional EKG results interpreted by me: 04/27/19 21:26 EKG shows sinus rhythm, left bundle branch block, unchanged from prior EKG, negative Irena's criteria per my interpretation. Discharge - Discharge Clinical Impression: Elevated troponin, S/P TAVR (transcatheter aortic valve replacement), Shortness of breath Condition: Fair Disposition: ADMITTED INPATIENT Admitting Provider: Gentry (Hospitalist) Unit Admitted: Telemetry
--- NOTE | 2019-04-27 20:43 | PDOC CONSULTATION ---
Consultation Consult Date: 04/27/19 Provider Consulted: BERRY COKER Consult reason:: Elevated Troponin, Dyspnea History of Present Illness Admission Date/PCP: 04/27/19 20:20 DEJAH RAMOS MD Patient complains of: Dyspnea History of Present Illness: OMAR MONTALVO is a 78 year old male with the following problems 1. Calcific Aortic Stenosis s/p TAVR [04/24/2019-[facility]] 2. CAD 3. CABG 2010[RODARTE-LAD, SVG-OM2, SVG-OM3] 4. Systemic hypertension 5. Dyslipidemia 6. IVCD GDQV=539 ms 7. Pituitary adenoma Patient presented to the ED with complaints of inability to catch a deep breath. No specific mention of chest pain or angina. Similar symptoms were endorsed to me in the office earlier which responded to Isosorbide MN 30 mg daily and probably could be an anginal equivalent for him. At the time of my evaluation in the ED the patient is comfortable and denies any chest pain, nausea. No diaphoresis or dizziness is reported Tele- SR with IVCD CT Chest -Negative for PE or aortic dissection Latest Troponin 0.11 CXR- Post CABG, Valve +Ao Past Medical History Cardiac Medical History: Reports: Coronary Artery Disease, Myocardial Infarction, Hyperlipidema, Hypertension Pulmonary Medical History: Denies: Asthma, Bronchitis, Chronic Obstructive Pulmonary Disease (COPD), Pneumonia Neurological Medical History: Denies: Seizures Musculoskeltal Medical History: Reports: Arthritis - HANDS Hematology: Denies: Anemia Past Surgical History Past Surgical History: Reports: Cardiac Catheterization, Coronary Artery Bypass Graft, Valve Replacement Social History Smoking Status: Never Smoker Electronic Cigarette use?: No Family History Family History: Reviewed & Not Pertinent Parental Family History Reviewed: No Children Family History Reviewed: NA Sibling(s) Family History Reviewed.: NA Medication/Allergy Home Medications: Amlodipine Besylate [Norvasc 5 mg Tablet] 10 mg PO DAILY 06/02/16 Aspirin [Aspirin 81 mg Chewable Tablet] 81 mg PO DAILY 06/02/16 Multivit-Min/Iron Fum/Folic AC [Sudah-Igcmoad-Wcgpsnmr Tablet] 1 each PO DAILY 06/02/16 [place]-3 Fatty Acids [Fish Oil] 300 mg PO DAILY 06/02/16 Pantoprazole Sodium [Protonix] 20 mg PO DAILY 06/02/16 Rosuvastatin Calcium [Crestor 20 mg Tablet] 20 mg PO DAILY 06/02/16 Cabergoline [Cabergoline 0.5 mg Tablet] 0.5 mg PO 04/27/19 Isosorbide Mononitrate [Imdur 30 mg Tablet.er] 30 mg PO DAILY 04/27/19 Levothyroxine Sodium [Synthroid 0.075 mg Tablet] 0.075 mg PO Q6AM 04/27/19 Ticagrelor [Brilinta 90 mg Tablet] 90 mg PO BID 04/27/19 Allergies/Adverse Reactions: No Known Allergies Allergy (Verified 04/27/19 13:46) Physical Exam Vital Signs: Temp Pulse Resp BP Pulse Ox 98 F 67 13 142/64 H 96 04/27/19 13:46 04/27/19 13:46 04/27/19 19:01 04/27/19 19:01 04/27/19 19:01 Intake & Output 04/26/19 04/27/19 04/28/19 06:59 06:59 06:59 Weight 73 kg General appearance: PRESENT: no acute distress Head exam: PRESENT: atraumatic, normocephalic Eye exam: PRESENT: EOMI Ear exam: PRESENT: normal external ear exam Mouth exam: PRESENT: moist Neck exam: PRESENT: full ROM Respiratory exam: PRESENT: unlabored Cardiovascular exam: PRESENT: RRR Pulses: PRESENT: normal radial pulses Musculoskeletal exam: PRESENT: normal inspection Neurological exam: PRESENT: alert, awake, oriented to person, oriented to place, oriented to time Psychiatric exam: PRESENT: appropriate affect Results Laboratory Results: 04/27/19 14:50 04/27/19 14:50 04/27/19 04/27/19 14:50 14:50 WBC 7.5 RBC 4.42 Hgb 14.2 Hct 40.3 MCV 91 MCH 32.2 MCHC 35.2 RDW 14.1 H Plt Count 125 L Seg Neutrophils % 68.3 Sodium 140.0 Potassium 4.2 Chloride 104 Carbon Dioxide 29 Anion Gap 7 BUN 28 H Creatinine 1.28 H Est GFR ( Amer) > 60 Glucose 108 Calcium 9.3 Total Bilirubin 1.2 AST 34 Alkaline Phosphatase 72 Total Protein 7.3 Albumin 4.0 04/27/19 04/27/19 14:50 17:08 Troponin I 0.108 0.119 NT-Pro-B Natriuret Pep 407 EKG Comments: SR IVCD Impressions: Chest X-Ray 04/27/19 13:57 IMPRESSION: NO ACUTE RADIOGRAPHIC FINDING IN THE CHEST. Chest/Abdomen CTA 04/27/19 16:44 IMPRESSION: There are no pulmonary emboli. There is no aortic aneurysm or dissection. Status: Image reviewed by me Assessment & Plan - Diagnosis (1) Elevated troponin Is this a current diagnosis for this admission?: Yes Plan: Elevated Troponin s/p TAVR 04/24/2019. Peak Troponin is 0.11 This is not ACS given low Troponin profile and patient being post procedure. He does pilot point as well as graft atheroslcerosis and is certainly capable of having ACS. At this point would observe and trend Troponin. Would not initiate Heparin gtt unless Troponins cross over into full digits (no definite number can be given) together with symptoms suggestive of myocardial ischemia- dyspnea that is more pronounced and chest pain. Continue DAPT- ASA and Ticagrelor (2) S/P TAVR (transcatheter aortic valve replacement) Is this a current diagnosis for this admission?: Yes Plan: Supportive care. (3) Shortness of breath Is this a current diagnosis for this admission?: Yes Plan: Patient has had this symptom previously, Could be an anginal equivalent. At this point it is uncertain that this is a manifestation of ACS for him. Would hold off on Heparin gtt and continue his other cardiac medications. CT Chest suggests no acute pathology such as PE or aortic pathology to account for symptoms post TAVR - Notes Notes: At this point would observe and trend Troponin. Would not initiate Heparin gtt unless Troponins cross over into full digits (no definite number can be given) together with symptoms suggestive of myocardial ischemia- dyspnea that is more pronounced and chest pain. Continue DAPT- ASA and Ticagrelor
[2019-04-27] MEDS ORDERED: ACETAMINOPHEN 325 MG TABLET PO PRN (21:11)
[2019-04-27] MEDS ORDERED: MAG HYDROX/AL HYDROX/SIMETH SUSP 30 ML UDCUP PO PRN (21:11)
[2019-04-27] MEDS ORDERED: NITROGLYCERIN 0.4 MG/TAB 25 TAB/BOTTLE SL PRN (21:11)
--- NOTE | 2019-04-28 04:35 | PDOC H&P ---
History of Present Illness Admission Date/PCP: 04/27/19 20:20 DEJAH RAMOS MD Patient complains of: Shortness of breath History of Present Illness: OMAR MONTALVO is a 78 year old male with a past medical history of coronary artery disease status post coronary artery bypass graft 2010, hypertension, dyslipidemia, pituitary adenoma on cabergoline and aortic stenosis status post TAVR April 24, 2019 at [facility]. Patient presents with several hours of intermittent shortness of breath at rest significantly worsened by exertion. He denies chest pain, nausea, vomiting, diaphoresis or palpitations. His pain coordinator Dr. Michael Crowder is consulted by the emergency department for the symptoms in conjunction with an elevated troponin and pre-existing left bundle branch block. Observation, increase Imdur dosing and serial troponins are recommended. He is referred to the hospitalist for admission. Patient otherwise feels well and admits compliance with medication regiment. Past Medical History Cardiac Medical History: Reports: Coronary Artery Disease, Myocardial Infarction, Hyperlipidema, Hypertension Pulmonary Medical History: Denies: Asthma, Bronchitis, Chronic Obstructive Pulmonary Disease (COPD), Pneumonia Neurological Medical History: Denies: Seizures Musculoskeltal Medical History: Reports: Arthritis - HANDS Psychiatric Medical History: Denies: Depression Hematology: Denies: Anemia Past Surgical History Past Surgical History: Reports: Cardiac Catheterization, Coronary Artery Bypass Graft, Valve Replacement Social History Information Source: Patient, Emergency Med Personnel, Dr. Saini, [facility] Records Smoking Status: Never Smoker Electronic Cigarette use?: No Frequency of Alcohol Use: None Hx Recreational Drug Use: No Drugs: None Hx Prescription Drug Abuse: No - Advance Directive Resuscitation Status: Full Code Family History Family History: Hypertension Parental Family History Reviewed: Yes Children Family History Reviewed: Yes Sibling(s) Family History Reviewed.: Yes Medication/Allergy Home Medications: Amlodipine Besylate [Norvasc 5 mg Tablet] 10 mg PO DAILY 06/02/16 Aspirin [Aspirin 81 mg Chewable Tablet] 81 mg PO DAILY 06/02/16 Multivit-Min/Iron Fum/Folic AC [Lepbv-Nglmjql-Idvudjab Tablet] 1 each PO DAILY 06/02/16 Pantoprazole Sodium [Protonix] 20 mg PO DAILY 06/02/16 Rosuvastatin Calcium [Crestor 20 mg Tablet] 20 mg PO DAILY 06/02/16 Cabergoline [Cabergoline 0.5 mg Tablet] 0.5 mg PO TU@2200 04/27/19 Isosorbide Mononitrate [Imdur 30 mg Tablet.er] 30 mg PO DAILY 04/27/19 Levothyroxine Sodium [Synthroid 0.075 mg Tablet] 0.075 mg PO Q6AM 04/27/19 Nitroglycerin [Nitrostat 0.4 mg (1/150 Gr) Tabs 25/Bottle] 1 tab SL Q5MP PRN 04/27/19 Ticagrelor [Brilinta 90 mg Tablet] 90 mg PO BID 04/27/19 Allergies/Adverse Reactions: No Known Allergies Allergy (Verified 04/27/19 13:46) Review of Systems Constitutional: ABSENT: chills, fever(s), headache(s), weight gain, weight loss Eyes: ABSENT: visual disturbances Ears: ABSENT: hearing changes Cardiovascular: ABSENT: chest pain, dyspnea on exertion, edema, orthropnea, palpitations Respiratory: PRESENT: as per HPI, dyspnea. ABSENT: cough, hemoptysis Gastrointestinal: ABSENT: abdominal pain, constipation, diarrhea, hematemesis, hematochezia, nausea, vomiting Genitourinary: ABSENT: dysuria, hematuria Musculoskeletal: ABSENT: joint swelling Integumentary: ABSENT: rash, wounds Neurological: ABSENT: abnormal gait, abnormal speech, confusion, dizziness, focal weakness, syncope Psychiatric: ABSENT: anxiety, depression, homidical ideation, suicidal ideation Endocrine: ABSENT: cold intolerance, heat intolerance, polydipsia, polyuria Hematologic/Lymphatic: ABSENT: easy bleeding, easy bruising Physical Exam Vital Signs: Temp Pulse Resp BP Pulse Ox 98.3 F 63 15 153/54 H 97 04/27/19 23:39 04/27/19 23:39 04/27/19 23:39 04/27/19 23:39 04/27/19 23:39 Intake & Output 04/26/19 04/27/19 04/28/19 11:59 11:59 11:59 Output Total 0 Balance 0 Weight 74 kg General appearance: PRESENT: no acute distress, cooperative, well-developed, well-nourished Head exam: PRESENT: atraumatic, normocephalic Eye exam: PRESENT: conjunctiva pink, EOMI, PERRLA. ABSENT: scleral icterus Ear exam: PRESENT: normal external ear exam Mouth exam: PRESENT: moist, tongue midline Neck exam: ABSENT: carotid bruit, JVD, lymphadenopathy, thyromegaly Respiratory exam: PRESENT: clear to auscultation danita. ABSENT: rales, rhonchi, w heezes Cardiovascular exam: PRESENT: RRR, systolic murmur. ABSENT: diastolic murmur, rubs Pulses: PRESENT: normal dorsalis pedis pul Vascular exam: PRESENT: normal capillary refill GI/Abdominal exam: PRESENT: normal bowel sounds, soft. ABSENT: distended, guarding, mass, organolmegaly, rebound, tenderness Rectal exam: PRESENT: deferred Extremities exam: PRESENT: full ROM. ABSENT: calf tenderness, clubbing, pedal edema Neurological exam: PRESENT: alert, awake, oriented to person, oriented to place, oriented to time, oriented to situation, CN II-XII grossly intact. ABSENT: motor sensory deficit Psychiatric exam: PRESENT: appropriate affect, normal mood. ABSENT: homicidal ideation, suicidal ideation Skin exam: PRESENT: dry, intact, warm. ABSENT: cyanosis, rash Results Laboratory Results: 04/27/19 14:50 04/27/19 14:50 04/27/19 04/27/19 14:50 14:50 WBC 7.5 RBC 4.42 Hgb 14.2 Hct 40.3 MCV 91 MCH 32.2 MCHC 35.2 RDW 14.1 H Plt Count 125 L Seg Neutrophils % 68.3 Sodium 140.0 Potassium 4.2 Chloride 104 Carbon Dioxide 29 Anion Gap 7 BUN 28 H Creatinine 1.28 H Est GFR ( Amer) > 60 Glucose 108 Calcium 9.3 Total Bilirubin 1.2 AST 34 Alkaline Phosphatase 72 Total Protein 7.3 Albumin 4.0 04/27/19 04/27/19 04/27/19 14:50 17:08 21:33 Troponin I 0.108 0.119 0.111 NT-Pro-B Natriuret Pep 407 04/28/19 03:30 Troponin I 0.113 NT-Pro-B Natriuret Pep Impressions: Chest X-Ray 04/27/19 13:57 IMPRESSION: NO ACUTE RADIOGRAPHIC FINDING IN THE CHEST. Chest/Abdomen CTA 04/27/19 16:44 IMPRESSION: There are no pulmonary emboli. There is no aortic aneurysm or dissection. Assessment and Plan - Diagnosis (1) Elevated troponin Is this a current diagnosis for this admission?: Yes Plan: Unclear cause, known coronary disease possibly related to recent procedure. Serial cardiac enzymes, continue outpatient regiment, increase Imdur from 30 to 60 mg, aspirin, Brilinta, follow-up cardiology consult. (2) S/P TAVR (transcatheter aortic valve replacement) Is this a current diagnosis for this admission?: Yes Plan: Defer to cardiology (3) Shortness of breath Is this a current diagnosis for this admission?: Yes Plan: Unclear cause, CTA negative, no increased oxygen requirement, trial increased Imdur dose (4) Acute renal failure Is this a current diagnosis for this admission?: Yes Plan: Likely prerenal, gentle IV fluids, avoid nephrotoxic meds and doses follow-up chemistry. - Time Time Spent with patient: 25-34 minutes - Inpatient Certification Medical Necessity: Need Close Monitoring Due to Risk of Patient Decompensation
[2019-04-28 05:08] LABS: ANION GAP 8 (5-19); BLOOD UREA NITROGEN 25 mg/dL (7-20); CALCIUM 8.9 mg/dL (8.4-10.2); CARBON DIOXIDE 29 mmol/L (22-30); CHLORIDE 105 mmol/L (98-107); GLUCOSE 117 mg/dL (75-110); POTASSIUM 4.1 mmol/L (3.6-5.0)
[2019-04-28] MEDS ORDERED: LEVOTHYROXINE SODIUM 0.075 MG TABLET ONE (06:07)
[2019-04-28] MEDS: LEVOTHYROXINE SODIUM 0.075 MG TABLET PO SCH (06:19)
[2019-04-28 06:41] LABS: APPEARANCE,URINE CLEAR; BILIRUBIN,URINE NEGATIVE (NEGATIVE); COLOR,URINE YELLOW; GLUCOSE, URINE NEGATIVE (NEGATIVE); KETONES,URINE NEGATIVE (NEGATIVE); LEUKOCYTE ESTERASE,URINE NEGATIVE (NEGATIVE); NITRITE,URINE NEGATIVE (NEGATIVE); PROTEIN,URINE NEGATIVE (NEGATIVE); URINE SPECIFIC GRAVITY 1.036
[2019-04-28] MEDS: ISOSORBIDE MONONITRATE 60 MG TAB.ER.24H PO SCH (09:54)
[2019-04-28] MEDS: AMLODIPINE BESYLATE 5 MG TABLET PO SCH (09:54)
[2019-04-28] MEDS: TICAGRELOR 90 MG TABLET PO SCH ×2 (09:55→18:10)
[2019-04-28] MEDS ORDERED: PANTOPRAZOLE SODIUM 40 MG TABLET.DR PO SCH (10:00)
[2019-04-28] MEDS ORDERED: ASPIRIN 81 MG TABLET, CHEWABLE PO SCH (10:00)
[2019-04-28] MEDS: ASPIRIN 81 MG TABLET, ENT COATED PO SCH (10:03)
[2019-04-28] MEDS: PANTOPRAZOLE SODIUM 20 MG TABLET.DR PO SCH (10:04)
--- NOTE | 2019-04-28 14:02 | PDOC PROGRESS REPORT ---
Subjective Progress Note for:: 04/28/19 Subjective:: Patient states that he is feeling well this morning. Mild shortness of breath when sitting in chair this morning though better than on presentation. Otherwise feels well. Reason For Visit: SOB, CAD, ELEVATED TROPONIN Physical Exam Vital Signs: Temp Pulse Resp BP Pulse Ox 97.8 F 69 16 128/68 H 97 04/28/19 11:56 04/28/19 11:56 04/28/19 11:56 04/28/19 11:56 04/28/19 11:56 Intake & Output 04/27/19 04/28/19 04/29/19 06:59 06:59 06:59 Intake Total 120 Output Total 0 Balance 0 120 Weight 74 kg General appearance: PRESENT: no acute distress, cooperative Eye exam: PRESENT: EOMI Neck exam: ABSENT: JVD Respiratory exam: PRESENT: clear to auscultation dnaita, symmetrical, unlabored. ABSENT: chest wall tenderness, rhonchi, tachypnea, wheezes Cardiovascular exam: PRESENT: RRR, +S1, +S2, systolic murmur GI/Abdominal exam: PRESENT: normal bowel sounds, soft. ABSENT: rebound, rigid, tenderness Neurological exam: PRESENT: alert, awake, oriented to person, oriented to place, oriented to time, oriented to situation Results Laboratory Results: 04/27/19 14:50 04/28/19 03:30 04/27/19 04/27/19 04/28/19 14:50 14:50 03:30 WBC 7.5 RBC 4.42 Hgb 14.2 Hct 40.3 MCV 91 MCH 32.2 MCHC 35.2 RDW 14.1 H Plt Count 125 L Seg Neutrophils % 68.3 Sodium 140.0 141.6 Potassium 4.2 4.1 Chloride 104 105 Carbon Dioxide 29 29 Anion Gap 7 8 BUN 28 H 25 H Creatinine 1.28 H 1.13 Est GFR ( Amer) > 60 > 60 Glucose 108 117 H Calcium 9.3 8.9 Total Bilirubin 1.2 AST 34 Alkaline Phosphatase 72 Total Protein 7.3 Albumin 4.0 Urine Color Urine Appearance Urine pH Ur Specific Solo Urine Protein Urine Glucose (UA) Urine Ketones Urine Blood Urine Nitrite Ur Leukocyte Esterase Urine WBC (Auto) Urine RBC (Auto) 04/28/19 06:25 WBC RBC Hgb Hct MCV MCH MCHC RDW Plt Count Seg Neutrophils % Sodium Potassium Chloride Carbon Dioxide Anion Gap BUN Creatinine Est GFR ( Amer) Glucose Calcium Total Bilirubin AST Alkaline Phosphatase Total Protein Albumin Urine Color YELLOW Urine Appearance CLEAR Urine pH 5.0 Ur Specific Solo 1.036 Urine Protein NEGATIVE Urine Glucose (UA) NEGATIVE Urine Ketones NEGATIVE Urine Blood NEGATIVE Urine Nitrite NEGATIVE Ur Leukocyte Esterase NEGATIVE Urine WBC (Auto) 1 Urine RBC (Auto) 1 04/27/19 04/27/19 04/27/19 14:50 17:08 21:33 Troponin I 0.108 0.119 0.111 NT-Pro-B Natriuret Pep 407 04/28/19 04/28/19 03:30 09:13 Troponin I 0.113 0.112 NT-Pro-B Natriuret Pep Impressions: Chest X-Ray 04/27/19 13:57 IMPRESSION: NO ACUTE RADIOGRAPHIC FINDING IN THE CHEST. Chest/Abdomen CTA 04/27/19 16:44 IMPRESSION: There are no pulmonary emboli. There is no aortic aneurysm or dissection. Assessment and Plan - Diagnosis (1) Shortness of breath Is this a current diagnosis for this admission?: Yes Plan: CTA negative, no increased oxygen requirement, Of note patient just had TAVR 4 days ago Improved today Spoke with patient's primary airline flight attendant Dr. Crowder who states to increase Imdur dose to 60 mg daily as it could be anginal equivalent. (2) S/P TAVR (transcatheter aortic valve replacement) Is this a current diagnosis for this admission?: Yes Plan: Had TAVR with cow valve on 04/24/2019. Continue aspirin and Brilinta Outpatient follow-up with Dr. Crowder next week. (3) Acute renal failure Qualifiers: Acute renal failure type: unspecified Qualified Code(s): N17.9 - Acute kidney failure, unspecified Is this a current diagnosis for this admission?: Yes Plan: Resolved following IV fluids. (4) Elevated troponin Is this a current diagnosis for this admission?: Yes Plan: I have discussed with cardiology. Likely secondary to recent cardiac procedure rather than ACS. Flat trend. No need to keep trending. - Time Time Spent with patient: 15-24 minutes
[2019-04-28] MEDS ORDERED: ATORVASTATIN CALCIUM 40 MG TABLET PO SCH (22:00)
[2019-04-29] MEDS: LEVOTHYROXINE SODIUM 0.075 MG TABLET PO SCH (05:47)
[2019-04-29 08:51] VITALS: BP 150/68
[2019-04-29] MEDS: ASPIRIN 81 MG TABLET, ENT COATED PO SCH (10:13)
[2019-04-29] MEDS: PANTOPRAZOLE SODIUM 20 MG TABLET.DR PO SCH (10:13)
[2019-04-29] MEDS: AMLODIPINE BESYLATE 5 MG TABLET PO SCH (10:13)
[2019-04-29] MEDS: ISOSORBIDE MONONITRATE 60 MG TAB.ER.24H PO SCH (10:13)
[2019-04-29] MEDS: TICAGRELOR 90 MG TABLET PO SCH (10:22)
--- NOTE | 2019-04-29 13:08 | PDOC DISCHARGE SUMMARY ---
Impression - Admit/DC Date/PCP Admission Date/Primary Care Provider: 04/27/19 20:20 DEJAH RAMOS MD Discharge Date: 04/29/19 - Discharge Diagnosis (1) Shortness of breath Is this a current diagnosis for this admission?: Yes (2) S/P TAVR (transcatheter aortic valve replacement) Is this a current diagnosis for this admission?: Yes (3) Acute renal failure Is this a current diagnosis for this admission?: Yes (4) Elevated troponin Is this a current diagnosis for this admission?: Yes - Assessment Summary: Patient was admitted for evaluation of shortness of breath which has been occurring intermittently. In light of recent surgical TAVR, CTA of the chest was done in the emergency department which revealed no evidence of pulmonary embolism, no pneumonia. Patient's primary meat clerk Dr. Berry Coker was consulted who evaluated patient and states that it may simply be an anginal equivalent. Dr. Coker recommended increasing Imdur from 30 to 60 mg daily which was done and cleared patient for discharge. Patient's symptoms resolved patient was feeling fine and is being discharged to follow-up with Dr. Coker on the scheduled date. - Additional Information Resuscitation Status: Full Code Discharge Diet: Cardiac Discharge Activity: Activity As Tolerated Referrals: BERRY COKER MD [ACTIVE STAFF] - 05/08/19 10:30 am Prescriptions: Isosorbide Mononitrate [Imdur 60 mg Tablet.er] 60 mg PO DAILY #30 tab.er.24h Home Medications: Amlodipine Besylate [Norvasc 5 mg Tablet] 10 mg PO DAILY 06/02/16 Aspirin [Aspirin 81 mg Chewable Tablet] 81 mg PO DAILY 06/02/16 Multivit-Min/Iron Fum/Folic AC [Ugwmd-Sowinov-Wwcyebue Tablet] 1 each PO DAILY 06/02/16 Pantoprazole Sodium [Protonix] 20 mg PO DAILY 06/02/16 Rosuvastatin Calcium [Crestor 20 mg Tablet] 20 mg PO DAILY 06/02/16 Cabergoline [Cabergoline 0.5 mg Tablet] 0.5 mg PO TU@2200 04/27/19 Levothyroxine Sodium [Synthroid 0.075 mg Tablet] 0.075 mg PO Q6AM 04/27/19 Nitroglycerin [Nitrostat 0.4 mg (1/150 Gr) Tabs 25/Bottle] 1 tab SL Q5MP PRN 04/27/19 Ticagrelor [Brilinta 90 mg Tablet] 90 mg PO BID 04/27/19 Isosorbide Mononitrate [Imdur 60 mg Tablet.er] 60 mg PO DAILY #30 tab.er.24h 04/29/19 History of Present Illiness History of Present Illness: OMAR MONTALVO is a 78 year old male with a past medical history of coronary artery disease status post coronary artery bypass graft 2010, hypertension, dyslipidemia, pituitary adenoma on cabergoline and aortic stenosis status post TAVR April 24, 2019 at [facility]. Patient presents with several hours of intermittent shortness of breath at rest significantly worsened by exertion. He denies chest pain, nausea, vomiting, diaphoresis or palpitations. His meat clerk Dr. Michael Coker is consulted by the emergency department for the symptoms in conjunction with an elevated troponin and pre-existing left bundle branch block. Observation, increase Imdur dosing and serial troponins are recommended. He is referred to the hospitalist for admission. Patient otherwise feels well and admits compliance with medication regimen. Physical Exam Vital Signs: Temp Pulse Resp BP Pulse Ox 98.1 F 61 18 150/68 H 100 04/29/19 10:15 04/29/19 10:15 04/29/19 10:15 04/29/19 10:15 04/29/19 10:15 Intake & Output 04/28/19 04/29/19 04/30/19 06:59 06:59 06:59 Intake Total 620 360 Output Total 0 Balance 0 620 360 Weight 74 kg 73.3 kg General appearance: PRESENT: no acute distress Respiratory exam: PRESENT: clear to auscultation danita Cardiovascular exam: PRESENT: +S1, +S2. ABSENT: tachycardia Neurological exam: PRESENT: alert, awake, oriented to person, oriented to place, oriented to time Results Laboratory Results: WBC 7.5 10^3/uL (4.0-10.5) 04/27/19 14:50 RBC 4.42 10^6/uL (4.35-5.55) 04/27/19 14:50 Hgb 14.2 g/dL (13.5-17.0) 04/27/19 14:50 Hct 40.3 % (37.9-51.0) 04/27/19 14:50 MCV 91 fl (80-97) 04/27/19 14:50 MCH 32.2 pg (27.0-33.4) 04/27/19 14:50 MCHC 35.2 g/dL (32.0-36.0) 04/27/19 14:50 RDW 14.1 % (11.5-14.0) H 04/27/19 14:50 Plt Count 125 10^3/uL (150-450) L 04/27/19 14:50 Lymph % (Auto) 21.2 % (13-45) 04/27/19 14:50 [place] % (Auto) 9.1 % (3-13) 04/27/19 14:50 Eos % (Auto) 1.0 % (0-6) 04/27/19 14:50 Baso % (Auto) 0.4 % (0-2) 04/27/19 14:50 Absolute Neuts (auto) 5.1 10^3/uL (1.7-8.2) 04/27/19 14:50 Absolute Lymphs (auto) 1.6 10^3/uL (0.5-4.7) 04/27/19 14:50 Absolute Monos (auto) 0.7 10^3/uL (0.1-1.4) 04/27/19 14:50 Absolute Eos (auto) 0.1 10^3/uL (0.0-0.6) 04/27/19 14:50 Absolute Basos (auto) 0.0 10^3/uL (0.0-0.2) 04/27/19 14:50 Seg Neutrophils % 68.3 % (42-78) 04/27/19 14:50 PT 13.3 SEC (11.4-15.4) 04/27/19 14:50 INR 1.01 04/27/19 14:50 APTT 27.4 SEC (23.5-35.8) 04/27/19 14:50 Sodium 141.6 mmol/L (137-145) 04/28/19 03:30 Potassium 4.1 mmol/L (3.6-5.0) 04/28/19 03:30 Chloride 105 mmol/L (98-107) 04/28/19 03:30 Carbon Dioxide 29 mmol/L (22-30) 04/28/19 03:30 Anion Gap 8 (5-19) 04/28/19 03:30 BUN 25 mg/dL (7-20) H 04/28/19 03:30 Creatinine 1.13 mg/dL (0.52-1.25) 04/28/19 03:30 Est GFR ( Amer) > 60 (>60) 04/28/19 03:30 Est GFR (MDRD) Non-Af > 60 (>60) 04/28/19 03:30 Glucose 117 mg/dL (75-110) H 04/28/19 03:30 Calcium 8.9 mg/dL (8.4-10.2) 04/28/19 03:30 Total Bilirubin 1.2 mg/dL (0.2-1.3) 04/27/19 14:50 Direct Bilirubin 0.1 mg/dL (0.0-0.4) 04/27/19 14:50 Neonat Total Bilirubin Not Reportable 04/27/19 14:50 Neonat Direct Bilirubin Not Reportable 04/27/19 14:50 Neonat Indirect Bili Not Reportable 04/27/19 14:50 AST 34 U/L (17-59) 04/27/19 14:50 ALT 21 U/L (<50) 04/27/19 14:50 Alkaline Phosphatase 72 U/L (38-126) 04/27/19 14:50 Troponin I 0.112 ng/mL 04/28/19 09:13 NT-Pro-B Natriuret Pep 407 pg/mL (<450) 04/27/19 14:50 Total Protein 7.3 g/dL (6.3-8.2) 04/27/19 14:50 Albumin 4.0 g/dL (3.5-5.0) 04/27/19 14:50 Urine Color YELLOW 04/28/19 06:25 Urine Appearance CLEAR 04/28/19 06:25 Urine pH 5.0 (5.0-9.0) 04/28/19 06:25 Ur Specific [place] 1.036 04/28/19 06:25 Urine Protein NEGATIVE mg/dL (NEGATIVE) 04/28/19 06:25 Urine Glucose (UA) NEGATIVE mg/dL (NEGATIVE) 04/28/19 06:25 Urine Ketones NEGATIVE mg/dL (NEGATIVE) 04/28/19 06:25 Urine Blood NEGATIVE (NEGATIVE) 04/28/19 06:25 Urine Nitrite NEGATIVE (NEGATIVE) 04/28/19 06:25 Urine Bilirubin NEGATIVE (NEGATIVE) 04/28/19 06:25 Urine Urobilinogen 4.0 mg/dL (<2.0) H 04/28/19 06:25 Ur Leukocyte Esterase NEGATIVE (NEGATIVE) 04/28/19 06:25 Urine WBC (Auto) 1 /HPF 04/28/19 06:25 Urine RBC (Auto) 1 /HPF 04/28/19 06:25 Urine Mucus (Auto) RARE /LPF 04/28/19 06:25 Urine Ascorbic Acid NEGATIVE (NEGATIVE) 04/28/19 06:25 04/27/19 04/27/19 04/27/19 14:50 17:08 21:33 Troponin I 0.108 0.119 0.111 NT-Pro-B Natriuret Pep 407 04/28/19 04/28/19 03:30 09:13 Troponin I 0.113 0.112 NT-Pro-B Natriuret Pep Impressions: Chest X-Ray 04/27/19 13:57 IMPRESSION: NO ACUTE RADIOGRAPHIC FINDING IN THE CHEST. Chest/Abdomen CTA 04/27/19 16:44 IMPRESSION: There are no pulmonary emboli. There is no aortic aneurysm or dissection. Plan Time Spent: Less than 30 Minutes Stroke Is this a Stroke Patient?: No Acute Heart Failure - Is this a Heart Failure Patient?: No
--- NOTE | 2019-04-30 12:06 | EKG REPORT ---
SEVERITY:- ABNORMAL ECG - SINUS RHYTHM PROBABLE LEFT ATRIAL ABNORMALITY NONSPECIFIC INTRAVENTRICULAR CONDUCTION DELAY LEFT VENTRICULAR HYPERTROPHY ANTERIOR INFARCT, AGE INDETERMINATE : Confirmed by: Philly Ferrera MD 30-Apr-2019 12:04:57
[2019-05-02] MEDS ORDERED: CABERGOLINE 0.5 MG PO SCH (22:00)
== END 2019-04-29 10:20 | disposition home or self-care (01) ==
LOC: ER 13:24 → INTOOBSV 20:20 → EH 20:20 → 4S 23:20
PROVIDERS: ADMIT Internal Medicine; ATTEND Internal Medicine
DX: R06.02 Shortness of breath (principal); Z95.3 Presence of xenogenic heart valve; N17.9 Acute kidney failure, unspecified; R79.89 Other specified abnormal findings of blood chemistry; I44.7 Left bundle-branch block, unspecified; D35.2 Benign neoplasm of pituitary gland; I10 Essential (primary) hypertension; E78.5 Hyperlipidemia, unspecified; I45.89 Other specified conduction disorders; I25.10 Atherosclerotic heart disease of native coronary artery without angina pectoris; I25.2 Old myocardial infarction; Z95.1 Presence of aortocoronary bypass graft; Z79.899 Other long term (current) drug therapy; Z79.82 Long term (current) use of aspirin; Z95.5 Presence of coronary angioplasty implant and graft
CPT/HCPCS: 93005; 99285; 36415 ×2; 85025; 85610; 85730; 80048; 80053; 81001; 84484 ×2; 83880; 71046; 71275; 93010; G0378 ×4; A9270 ×13; J3490 ×3

== ENCOUNTER 2019-12-16 08:06 | Emergency (ER) | payer MEDICARE, OTHER ==
[2019-12-16] MEDS ORDERED: DEXAMETHASONE SOD PHOS INJ 10 MG/1 ML VIAL IM ONE (09:53)
--- NOTE | 2019-12-16 09:59 | ER Document Report ---
ED General - General Chief Complaint: Hip Pain Stated Complaint: LEFT HIP,LEG PAIN Primary Care Provider: DEJAH RAMOS MD [Primary Care Provider] - Follow up as needed Notes: Patient is a 79-year-old white male with a history of CABG and valve replacement with bovine valve who presents to the emergency department the chief complaint o f left buttock pain that radiates down the left leg. He states he goes for 5 mile bike rides twice a week. He reports on after his bike ride he was walking up some stairs to his house and felt a sudden sharp shooting pain originating from the left buttock traveling down the left leg to the left foot. He states the pain is made worse and with full extension of the spine and better with flexion. States the pain is sharp, shocking and shooting. Reports an associated pain in the left testicle. He denies any blunt injury or trauma. He denies any saddle anesthesia. No urinary or bowel incontinence or retention. Patient states he had a history of something similar to this in the past that required physical therapy. He states it was sciatica of the right side. States it feels very similar. Denies any foot drop. TRAVEL OUTSIDE OF THE [place] IN LAST 30 DAYS: No - Related Data Allergies/Adverse Reactions: No Known Allergies Allergy (Verified 04/27/19 13:46) Home Medications: Synthroid, Hydralazine, Norvasc, Plavix, Protonix, Crestor, Aspirin, Cabergoline Past Medical History - Social History Smoking Status: Unknown if Ever Smoked Family History: Hypertension - Past Medical History Cardiac Medical History: Reports: Hx Coronary Artery Disease, Hx Heart Attack, Hx Hypercholesterolemia, Hx Hypertension Pulmonary Medical History: Denies: Hx Asthma, Hx Bronchitis, Hx COPD, Hx Pneumonia Neurological Medical History: Denies: Hx Cerebrovascular Accident, Hx Seizures Renal/ Medical History: Denies: Hx Peritoneal Dialysis Musculoskeletal Medical History: Reports Hx Arthritis - HANDS Psychiatric Medical History: Denies: Hx Depression Past Surgical History: Reports: Hx Cardiac Catheterization, Hx Coronary Artery Bypass Graft, Hx Valve Replacement - Immunizations Hx Diphtheria, Pertussis, Tetanus Vaccination: Yes Hx Pneumococcal Vaccination: 02/21/13 Review of Systems - Review of Systems Constitutional: denies: Fever EENT: denies: Throat pain Cardiovascular: denies: Chest pain Respiratory: denies: Short of breath Gastrointestinal: denies: Abdominal pain Genitourinary: denies: Pain Male Genitourinary: Testicular pain Musculoskeletal: Joint pain, Muscle pain Skin: denies: Change in color Hematologic/Lymphatic: denies: Easy bruising Neurological/Psychological: Other - Neuropathy Physical Exam - Vital signs Vitals: Temp Pulse Resp BP Pulse Ox 97.9 F 69 20 164/79 H 98 12/16/19 08:10 12/16/19 08:10 12/16/19 08:10 12/16/19 08:10 12/16/19 08:10 - General General appearance: Appears well, Alert In distress: None - Respiratory Respiratory status: No respiratory distress Chest status: Nontender Breath sounds: Normal Chest palpation: Normal - Cardiovascular Rhythm: Regular Heart sounds: Normal auscultation - Genitourinary Inspection: Normal Tenderness: Nontender Scrotum: Normal. No: Swelling, Redness, Hot to touch - Back Back: Other - No midline spinal tenderness of the low back. Normal alignment appreciated. No step-off or crepitus. Patient has point tenderness over the left piriformis. Positive straight leg raise at approximately 45 degrees on the left. Lower extremity strength is 5 out of 5 bilaterally. 2+ DP/PT bilaterally. DTRs are 2+ bilaterally. Gait is slightly flexed at the lumbar spine and shuffled. Pain clearly elicited with forced full extension to an upright posture. Normal sensations reported in bilateral lower extremities. Patient is able to elevate great toes bilaterally. - Extremities General upper extremity: Normal inspection, Nontender, Normal color, Normal ROM, Normal temperature General lower extremity: Normal inspection, Nontender, Normal color, Normal ROM, Normal temperature, Normal weight bearing. 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 Will discuss bicycle seat changes. Obtain lumbar spine imaging to rule out any other abnormality. 12/16/19 10:55 X-ray showing degenerative disease, otherwise no acute process. 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 Will treat with muscle relaxers and a short course of steroid medication. Will avoid NSAIDs due to the patient's cardiac history. He will try his known physical therapy exercises at home and if no improvement he will seek outpatient follow-up and physical therapy involvement. Counseled him regarding the importance of outpatient follow-up and advised to return here any ER immediately with any new, persistent or worsening symptoms. He verbalized understood and agreed. 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 Please look into the different bicycle seat options we discussed and consider physical therapy exercises. If no improvement please follow-up with your regular doctor for referral and for physical therapy for formal evaluation. Please return here or any ER immediately with any new, persistent or worsening symptoms. Prescriptions: Prednisone [Deltasone 20 mg Tablet] 2 tab PO DAILY 5 Days #10 tablet Methocarbamol [Robaxin 500 mg Tablet] 500 mg PO QID PRN #20 tablet PRN Reason: Referrals: DEJAH RAMOS MD [Primary Care Provider] - Follow up as needed
[2019-12-16 10:05] LABS: ALBUMIN 4.5 g/dL (3.5-5.0); ALKALINE PHOSPHATASE 67 U/L (38-126); ANION GAP 6 (5-19); ASPARTATE AMINO TRANSFERASE 25 U/L (17-59); BILIRUBIN,TOTAL 0.7 mg/dL (0.2-1.3); BLOOD UREA NITROGEN 16 mg/dL (7-20); CALCIUM 9.7 mg/dL (8.4-10.2); CARBON DIOXIDE 28 mmol/L (22-30); CHLORIDE 104 mmol/L (98-107); GLUCOSE 123 mg/dL (75-110); POTASSIUM 4.7 mmol/L (3.6-5.0); TOTAL PROTEIN 7.9 g/dL (6.3-8.2)
[2019-12-16 10:24] LABS: ABSOLUTE EOSINOPHILS # (AUTO) 0.1 10^3/uL (0.0-0.6); ABSOLUTE LYMPHOCYTES (AUTO) 1.3 10^3/uL (0.5-4.7); ABSOLUTE MONOCYTES (AUTO) 0.5 10^3/uL (0.1-1.4); ABSOLUTE NEUT (AUTO) 4.6 10^3/uL (1.7-8.2); BASOPHILS % (AUTO) 0.6 % (0-2); EOSINOPHILS % (AUTO) 1.2 % (0-6); HEMOGLOBIN 16.2 g/dL (13.5-17.0); MEAN CORPUSCULAR HEMOGLOBIN 32.2 pg (27.0-33.4); MEAN CORPUSCULAR HGB CONC 35.1 g/dL (32.0-36.0); MEAN CORPUSCULAR VOLUME 92 fl (80-97); MONOCYTES % (AUTO) 7.9 % (3-13); PLATELET COUNT 175 10^3/uL (150-450); RED BLOOD COUNT 5.02 10^6/uL (4.35-5.55); RED CELL DISTRIBUTION WIDTH 14.1 % (11.5-14.0); SEGMENTED NEUTROPHILS % (AUTO) 70.3 % (42-78); TOTAL CELLS COUNTED % (AUTO) 100 %; WHITE BLOOD COUNT 6.6 10^3/uL (4.0-10.5)
--- NOTE | 2019-12-16 10:40 | RADIOLOGY REPORT (SQ) ---
EXAM DESCRIPTION: L SPINE WHOLE IMAGES COMPLETED DATE/TIME: 12/16/2019 10:12 am REASON FOR STUDY: left LB radiculopathy COMPARISON: None. NUMBER OF VIEWS: Five views including obliques. TECHNIQUE: AP, lateral, oblique, and sacral radiographic images acquired of the lumbar spine. LIMITATIONS: None. FINDINGS: MINERALIZATION: Normal. SEGMENTATION: Normal. No transitional anatomy. ALIGNMENT: Degenerative anterolisthesis L4 on L5 and L3 on L4. VERTEBRAE: Maintained height. No fracture or worrisome bone lesion. DISCS: Degenerative disc disease with disc space narrowing L3-4 and L4-5. POSTERIOR ELEMENTS: No pars defects. Lower lumbar facet arthropathy. HARDWARE: None in the spine. PARASPINAL SOFT TISSUES: Normal. PELVIS: Intact as visualized. No fractures or worrisome bone lesions. SI joints intact. OTHER: No other significant finding. IMPRESSION: Degenerative disc disease L3-4 and L4-5. Lower lumbar facet arthropathy. TECHNICAL DOCUMENTATION: JOB ID: [id number] 2010 [employer]- All Rights Reserved Reading location - IP/workstation name: [email or web address]
[2019-12-16 11:06] VITALS: BP 145/70
== END 2019-12-16 11:05 | disposition home or self-care (01) ==
LOC: ER 08:06
DX: M54.17 Radiculopathy, lumbosacral region (principal); M25.552 Pain in left hip; Z95.1 Presence of aortocoronary bypass graft; Z79.02 Long term (current) use of antithrombotics/antiplatelets
CPT/HCPCS: 99283; 96372; 36415; 85025; 80053; 85379; 72110; J1100